=== PATIENT | male | born 1995 | race Caucasian/White ===

== ENCOUNTER → 2017-04-22 | Outpatient (CLI) | payer OTHER ==
[~2017-04-22] MED LIST: CELEXA10 MG PO
--- NOTE | 2017-04-22 13:03 | RADIOLOGY REPORT PS360 ---
[id number] VIEWS HISTORY: LEFT SHOULDER PAIN ORDERING PHYSICIAN: Betty Wray APRN PATIENT AGE: 22 years COMPARISON: None FINDINGS: No fracture or dislocation. No lytic or blastic change. There is normal mineralization. The joint spaces are well-preserved. No significant degenerative/arthritic changes. No erosive changes evident. IMPRESSION: Negative, no acute finding
--- NOTE | 2017-04-22 13:03 | RADIOLOGY REPORT PS360 ---
[facility] CLINICAL INDICATION: LEFT SHOULDER PAIN ORDERING PHYSICIAN: Betty Wray APRN PATIENT AGE: 22 years COMPARISON: None FINDINGS: No fracture or dislocation IMPRESSION: Negative left clavicle
--- NOTE | 2017-04-22 13:03 | RADIOLOGY REPORT PS360 ---
[facility] CLINICAL INDICATION: LEFT SHOULDER PAIN ORDERING PHYSICIAN: Betty Wray APRN PATIENT AGE: 22 years COMPARISON: None FINDINGS: No fracture or dislocation IMPRESSION: Negative left clavicle
== END ==
LOC: RAD 11:14
DX: M25.511 Pain in right shoulder (principal)